=== PATIENT | male | born 1995 | race Caucasian/White ===

== ENCOUNTER 2021-09-14 10:49 | Inpatient (IN) | payer MEDICAID ==
[~2021-09-14] VITALS: Ht 172.7 cm; Wt 70.3 kg
[2021-09-14 10:50] VITALS: BP_SYST 152
--- NOTE | 2021-09-14 10:50 | NUR ---
Placed in room 4 . Placed on monitor worker, blood pressure machine and pulse oximeter. To gown for exam. Side rails up. Report given to GINGER FERMIN.
--- NOTE | 2021-09-14 11:00 | NUR ---
ED MD RIDDLE AT BEDSIDE
[2021-09-14 11:15] LABS: BASOPHILS % (AUTO) 0.3 % (0.0-2.0); EOSINOPHILS % (AUTO) 0.3 % (0.0-4.0); HEMATOCRIT 42.8 % (36-54); HEMOGLOBIN 14.5 g/dL (14.0-18.0); LYMPHOCYTES # (AUTO) 3.2 K/uL (1.0-5.5); LYMPHOCYTES % (AUTO) 34.5 % (20.5-51.5); MEAN CORPUSCULAR HEMOGLOBIN 29 pg (27-31); MEAN CORPUSCULAR HGB CONC 34 % (32-36); MEAN CORPUSCULAR VOLUME 85 fL (79.0-98.0); MONOCYTES # (AUTO) 0.7 K/uL (0.0-1.0); MONOCYTES % (AUTO) 7.1 % (1.7-9.3); NEUTROPHILS # (AUTO) 5.4 K/uL (1.8-7.7); NEUTROPHILS % (AUTO) 57.8 % (40.0-70.0); PLATELET COUNT (AUTO) 296 K/uL (130-430); RED CELL DISTRIBUTION WIDTH 14.2 % (9.0-15.0); WHITE BLOOD COUNT (AUTO) 9.3 K/uL (4.8-10.8)
[2021-09-14] MEDS ORDERED: NACL 0.9% 1,000 ML IV ONE ×3 (11:15→15:45)
[2021-09-14] MEDS ORDERED: ONDANSETRON HCL 4 MG/2 ML VIAL IVP ONE (11:15)
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
[2021-09-14 11:31] LABS: CALCIUM 8.4 mg/dL (8.4-11.0); CREATININE 0.75 mg/dL (0.55-1.30); POTASSIUM 3.5 mmol/L (3.5-5.1)
[2021-09-14 11:36] LABS: ALBUMIN 4.7 g/dL (3.4-4.8); TOTAL BILIRUBIN 0.6 mg/dL (0.0-1.0)
[2021-09-14] MEDS ORDERED: HALOPERIDOL LACTATE 5 MG/ML VIAL IM ONE (11:45)
--- NOTE | 2021-09-14 11:47 | NUR ---
DUE TO PTS MENTAL STATUS, UNABLE TO VERIFY ALLERGIES WITH PT. FATHER AT BEDSIDE AND STATES PT DOES NOT HAVE ANY ALLERGIES
[2021-09-14 12:12] LABS: ACETAMINOPHEN < 1 ug/mL (1-30)
[2021-09-14 12:31] LABS: CKMB RELATIVE INDEX 0.1 (0.0-2.9); CREATINE KINASE MB 1.2 ng/mL (0-3.6)
[2021-09-14] MEDS ORDERED: DIAZEPAM 10 MG/2 ML DISP.SYRIN IVP ONE (15:15)
--- NOTE | 2021-09-14 15:18 | NUR ---
Notified ED Admitting regarding Dr. lema's request for admission. Per Dr. Lema, pt is not stable for transfer. Will contact insurance analyst regarding this matter. PER FACESHEET: HUGO SIMON/RAKEL- MADYSON
[2021-09-14] MEDS ORDERED: LORazepam 2 MG/ML VIAL ONE (15:41)
[2021-09-14] MEDS ORDERED: LORazepam 2 MG/ML VIAL IVP ONE (15:45)
[2021-09-14] MEDS ORDERED: QUET200T PO (16:28)
[2021-09-14] MEDS ORDERED: GABA-533 PO (16:28)
[2021-09-14] MEDS ORDERED: FOLIC ACID 1 MG, THIAMINE HCL 100 MG, MAGNESIUM SULFATE 1 GM, MVI 10 ML in NACL 0.9% 1,... IV ONE (16:30)
--- NOTE | 2021-09-14 16:31 | NUR ---
Admit bed requested Patient will be admitted to care of . Admitted to TELEMTRY unit. Diagnosis ALCOHOL INTOXICATION Inpatient (Yes or No) Y Observation (Yes or No) N Orientation concerns or request close to nursing station (Yes or No) Y Covid Status N On vent or bipap N Isolation requirements N Needs a sitter Y From Home (Yes or if No enter name of facility) Y Requires Dialysis (Yes or No) N Med Rec Completed (Yes of No) Y Addendum: 09/14/21 at 1905 by [id number] NOW ICU UPGRADED BP IN SYSTOLIC IS IN THE 80S
[2021-09-14] MEDS ORDERED: FOLIC ACID 1 MG, MVI 10 ML in NACL 0.9% 1,000 ML IV ONE (17:00)
[2021-09-14] MEDS ORDERED: THIAMINE HCL 100 MG, MAGNESIUM SULFATE 1 GM in NS 100 ML IV ONE (17:00)
[2021-09-14 17:02] LABS: BILIRUBIN,URINE NEGATIVE (NEGATIVE); BLOOD, URINE NEGATIVE (NEGATIVE); CLARITY/URINE CLEAR (CLEAR); COLOR,URINE YELLOW (YELLOW); GLUCOSE,URINE NEGATIVE (NEGATIVE); KETONES,URINE NEGATIVE (NEGATIVE); LEUKOCYTE ESTERASE ,URINE NEGATIVE (NEGATIVE); NITRITE, URINE NEGATIVE (NEGATIVE); PROTEIN URINE NEGATIVE (NEGATIVE); UROBILINOGEN,URINE 0.2 (0.2-1.0)
[2021-09-14 17:47] LABS: BARBITURATE, URINE NEGATIVE (NEG <=200); BENZODIAZEPINE, URINE NEGATIVE (NEG <=150); CANNABINOID, URINE POSITIVE (NEG <=50); COCAINE, URINE NEGATIVE (NEG <=150); METHAMPHETAMINES SCREEN,URINE NEGATIVE (NEG <=500); OPIATE, URINE NEGATIVE (NEG <=100); PHENCYCLIDINE SCREEN,URINE NEGATIVE (NEG <=25); UR TRICYCLIC ANTIDEPRESSANTS NEGATIVE (NEG <=300); URINE AMPHETAMINE NEGATIVE (NEG <=500); URINE METHADONE NEGATIVE (NEG <=200); URINE OXYCODONE SCREEN NEGATIVE (NEG <=100); URINE PROPOXYPHENE SCREEN NEGATIVE (NEG <=300)
[2021-09-14] MEDS ORDERED: FAMOTIDINE PF 20 MG/2 ML VIAL IVP ONE (18:45)
[2021-09-14] MEDS: LR 1,000 ML IV SCH ×2 (18:45→22:27)
--- NOTE | 2021-09-14 20:00 | NUR ---
PT LAYING IN GURNEY CONNECTED TO MONITORS WITH EYES CLOSED. EASILY AROUSIBLE. FATHER AT BEDSIDE. RESP E/U. SKIN WDL. GCS15.
[2021-09-14] MEDS ORDERED: FAMOTIDINE PF 20 MG/2 ML VIAL ONE (21:06)
--- NOTE | 2021-09-14 21:30 | NUR ---
REPORT TO YENI MILES
[2021-09-14 22:00] VITALS: BP_SYST 98
--- NOTE | 2021-09-14 22:00 | NUR ---
@2150 PT arrived on the unit admitted to room 126 ICU #11 asleep but woke up ambulatory assisted to bed oriented x4 vitals signs stable, denies pain,no dizziness accompanied by ER nurse Romy matos at the bedside also pt's father present at this time, Orientation to the unit, education on care plan and he verbalized understanding, said he will like something to eat and pt's dad volunteered to get ellie for pt. Skin checked no breakdown noted, IV site dry intact patent ongoing Banana bag drip. Voids in the urinal, bed in low position call light at reach and enhanced close monitoring for safety.
[2021-09-14 23:00] VITALS: BP_SYST 116
--- NOTE | 2021-09-14 23:00 | NUR ---
All questions answered by patient and his father, so far pt cooperating with care no sign of alcohol withdrawal noted, denies suicidal ideation, mentioned that drinking alcohol is a way for him to cope with stress, social insurance adviser intervention ordered, and pt ate 100% of food provided by his father.
--- NOTE | 2021-09-14 23:33 | NUR ---
CONSULT: CONSULT CALLED FOR DR. SADLER I SPOKE WITH [employer] [facility] REASON FOR CONSULT: SChuyI REQUESTING CONSULT: DR. CURRY RELATIONS COORDINATOR PHONE NUMBER: [phone]
[2021-09-15] VITALS (24 sets, daily range): BP systolic 88–127
--- NOTE | 2021-09-15 00:25 | NUR ---
Pt's mother, Paulette, calls and she was updated on pt status. Her call back number: [phone].
[2021-09-15] MEDS: LORazepam 2 MG/ML VIAL IVP PRN ×4 (02:30→16:39)
--- NOTE | 2021-09-15 02:40 | NUR ---
Pt was restless, Ativan 1mg ivp given, complete bed bath given with CHG, linen changed, dangled at the bed side assisted back to bed ,reorientation to the unit and care plan ongoing monitoring for Alcohol withdrawal.
--- NOTE | 2021-09-15 05:50 | NUR ---
Pt's mother called for updates over the phone, education on care plan pt's condition, support also encouraged to ask questions for further clarification.
--- NOTE | 2021-09-15 06:50 | NUR ---
pt was very restless anxious to go home ongoing support to alleviates anxiety another dose of Ativan 1mg ivp given effective relaxed asleep now vitals signs stable
[2021-09-15 06:53] LABS: BASOPHILS % (AUTO) 0.2 % (0.0-2.0); EOSINOPHILS # (AUTO) 0.1 K/uL (0.0-0.4); EOSINOPHILS % (AUTO) 0.6 % (0.0-4.0); HEMATOCRIT 36.4 % (36-54); HEMOGLOBIN 12.3 g/dL (14.0-18.0); LYMPHOCYTES # (AUTO) 2.4 K/uL (1.0-5.5); LYMPHOCYTES % (AUTO) 26.5 % (20.5-51.5); MEAN CORPUSCULAR HEMOGLOBIN 29 pg (27-31); MEAN CORPUSCULAR HGB CONC 34 % (32-36); MEAN CORPUSCULAR VOLUME 86 fL (79.0-98.0); MONOCYTES # (AUTO) 0.5 K/uL (0.0-1.0); MONOCYTES % (AUTO) 6.1 % (1.7-9.3); NEUTROPHILS # (AUTO) 5.9 K/uL (1.8-7.7); NEUTROPHILS % (AUTO) 66.6 % (40.0-70.0); PLATELET COUNT (AUTO) 215 K/uL (130-430); RED BLOOD CELL COUNT(AUTO) 4.23 MIL/uL (4.2-6.2); RED CELL DISTRIBUTION WIDTH 14.7 % (9.0-15.0); WHITE BLOOD COUNT (AUTO) 8.9 K/uL (4.8-10.8)
--- NOTE | 2021-09-15 07:03 | NUR ---
Bedside report given to Amna MILES for continuity of pt care as at this time pt vitals stable no complain and no sign of distress
[2021-09-15 07:05] LABS: ALBUMIN 3.3 g/dL (3.4-4.8); CALCIUM 7.8 mg/dL (8.4-11.0); CREATININE 0.75 mg/dL (0.55-1.30); POTASSIUM 3.9 mmol/L (3.5-5.1); TOTAL BILIRUBIN 0.4 mg/dL (0.0-1.0)
[2021-09-15 07:10] LABS: PROTHROMBIN TIME 10.2 SECS (9.5-12.5)
[2021-09-15 08:34] LABS: CKMB RELATIVE INDEX 0.2 (0.0-2.9); CREATINE KINASE MB 1.8 ng/mL (0-3.6)
[2021-09-15] MEDS: FAMOTIDINE PF 20 MG/2 ML VIAL IVP SCH ×2 (09:08→22:12)
--- NOTE | 2021-09-15 10:46 | NUR ---
Followed up the Psych consult with DR SADLER. IS OUT OF TOWN. HE WILL ARRANGE WITH HIS OFFICE TO DO HIS CONSULTATION THRU THE TELE PSYCH. HE WILL INSTRUCT HIS OFFICE.
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
--- NOTE | 2021-09-15 13:25 | NUR ---
CHANNING Martinez faxed packet for review for inpatient psych treatment to the following - [facility] direct: fax: - [facility] direct: fax: - [facility] direct: fax: Addendum: 09/15/21 at 1700 by Michelle SNELL CHANNING recievd denials due to not having a bed available for [facility] patient's over 20 years of age. Addtional packets were sent to the following; - [facility] fax: - [facility] fax: - [facility] fax: - [facility] fax:
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
[2021-09-15] MEDS ORDERED: IBUPROFEN 400 MG TABLET PO PRN (14:45)
[2021-09-15] MEDS: LR 1,000 ML IV SCH (14:45)
--- NOTE | 2021-09-15 16:22 | NUR ---
patient aaox3 simple follow commands severe anxious non compliance with tele monitor vital sign iv access removed room air no sob non labored breathing pt denied chest pain any pain tele;sr sbp keep 100 mother at bedside ss services arrange to discharge hospital pending at this time close observation
--- NOTE | 2021-09-15 19:40 | NUR ---
Report received from Amna MILES met pt back in ICU bed 8, anxious about his care plan when, he will be discharged home or to facility to get more help for detoxification as he said, support more explanation that social sciences instructor still working on placement for him. Vitals signs stable afebrile complain of generalized weakness "whole body sore" as he said, mentally alert feeling sober denied suicidal ideation, no hallucination, no tremor, worried about his family more, verbalized needs for change of lifestyle focus on himself and spend more time with his family. Also asked for a letter for his work because as he said they understood that he have problem with Alcohol addiction.
--- NOTE | 2021-09-15 21:30 | NUR ---
@2054 Updates pt's mother over the phone as she called to get information about the pt's condition. Assisted with bed bath dangled at the bedside linen changed ongoing reorientation support, encouraging him to verbalize his concerns, enhanced close monitoring for safety and active listening to make hm comfortable.
[2021-09-16] VITALS (8 sets, daily range): BP systolic 96–133
[2021-09-16] MEDS: LR 1,000 ML IV SCH ×2 (00:45→08:17)
[2021-09-16] MEDS: LORazepam 2 MG/ML VIAL IVP PRN ×2 (02:25→08:17)
[2021-09-16 06:05] LABS: BASOPHILS % (AUTO) 0.3 % (0.0-2.0); EOSINOPHILS # (AUTO) 0.1 K/uL (0.0-0.4); EOSINOPHILS % (AUTO) 1.5 % (0.0-4.0); HEMATOCRIT 38.9 % (36-54); HEMOGLOBIN 13.1 g/dL (14.0-18.0); LYMPHOCYTES # (AUTO) 1.8 K/uL (1.0-5.5); LYMPHOCYTES % (AUTO) 23.6 % (20.5-51.5); MEAN CORPUSCULAR HEMOGLOBIN 29 pg (27-31); MEAN CORPUSCULAR HGB CONC 34 % (32-36); MEAN CORPUSCULAR VOLUME 86 fL (79.0-98.0); MONOCYTES # (AUTO) 0.7 K/uL (0.0-1.0); MONOCYTES % (AUTO) 8.6 % (1.7-9.3); NEUTROPHILS # (AUTO) 5.1 K/uL (1.8-7.7); PLATELET COUNT (AUTO) 209 K/uL (130-430); RED BLOOD CELL COUNT(AUTO) 4.51 MIL/uL (4.2-6.2); RED CELL DISTRIBUTION WIDTH 13.7 % (9.0-15.0); WHITE BLOOD COUNT (AUTO) 7.7 K/uL (4.8-10.8)
[2021-09-16 06:25] LABS: ALBUMIN 3.7 g/dL (3.4-4.8); CALCIUM 8.1 mg/dL (8.4-11.0); CREATININE 0.76 mg/dL (0.55-1.30); POTASSIUM 3.5 mmol/L (3.5-5.1); TOTAL BILIRUBIN 1.1 mg/dL (0.0-1.0)
--- NOTE | 2021-09-16 06:30 | NUR ---
Ambulates pt in the hallway just for change of scene still pleasant cooperate with care no sign of alcohol withdrawal noted steady gait no tremor still mentally alert calm and vitals signs stable.
--- NOTE | 2021-09-16 07:15 | NUR ---
Change of shift report at the bedside to Nemo MILES as at this time pt awake alert no crisis noted vitals signs stable no changes in care plan, condition and pt is safe on the unit.
--- NOTE | 2021-09-16 07:30 | NUR ---
RECEIVED PT FROM GINGER JAIME. PT IS AAOX4. PERRL. RESP E/U. ON R/A. NO COUGH OR SOB. TELE IN PLACE SHOWING NSR. ABDOMEN SOFT, NONTENDER, NONDISTENDED. BOWEL SOUNDS ACTIVE. DENIES N/V/D/C. DISTAL PULSE NORMAL, NO EDEMA. SKIN WARM, INTACT. PT HAS IV CATH 20G TO RFA, WITH LR RUNNING AT 100ML/HOUR. SITE WNL. DRESSING CDI. PT DENIES PAIN. CALL LIGHT WITHIN REACH.
[2021-09-16] MEDS: FAMOTIDINE PF 20 MG/2 ML VIAL IVP SCH (08:17)
--- NOTE | 2021-09-16 08:22 | NUR ---
PT AGITATED, PULLING AT LINE, TAPING FEET, ASKING SAME QUESTIONS REPEATEDLY. PT VOICED FEELING ANXIOUS. ATIVAN 1MG IVP GIVEN ORDERED FOR AGITATION. PT PULLED IV CATH TO RFA, CATH INTACT, SITE WNL, COVERED WITH GAUZE AND TAPE. NEW IV CATH 20G STARTED TO RFA ON FIRST ATTEMPT. COVERED WITH CDI DRESSING. SCHEDULED MEDS GIVEN AND TOLERATED WELL. PT ON ONE TO ONE SUPERVISION WITH THIS RN.
--- NOTE | 2021-09-16 08:30 | NUR ---
PT NOTED TAKING OFF GOWN AND B/P CUP. PT REDIRECTED, EDUCATED ON PLAN OF CARE AND ENCOURAGED TO NO LEAVE AMA. PT STATED HE IS NOT LEAVING.
--- NOTE | 2021-09-16 08:35 | NUR ---
DRYING SUPERVISOR INSPECTOR AND CLIPPER Michelle contacted the following psych facilities for inpatient treatment for patient; [facility]- No bed [facility]- No bed [facility]- is not contracted with [facility]- still looking for bed [facility]- No beds [facility]- does not [facility]- No beds [facility] [place]- Not contracted with [facility] for patients over 20 [facility]- No beds INSPECTOR AND CLIPPER Will continue efforts to locate appropriate psych treatment/
--- NOTE | 2021-09-16 08:50 | NUR ---
PT TAKING OFF GOWN AND MONITOR, PUTTING CLOTHES ON APPEARING TO BE ATTEMPTING TO LEAVE. HE STATED, " I CAN NOT BE KEPT HERE." PT'S IV CATH TO RFA REMOVED PT APPEARS TO LEAVTING AMA AND HAD A DEPENDENCY PROBLEM. PT'S MOM CALLED BUT NUMBER IS WRONG, SHASTA ATTEMPTING TO FIND CORRECT NUMBER. PT MADE AWARE TO WAIT TO LEAVE UNTIL HIS PARENT CAN COME. NO RESPONSE FROM PT.
--- NOTE | 2021-09-16 08:56 | NUR ---
PT HAS TAKING OFF TELEMONITOR AND DRESSED COMPLETELY WITH SHOES ON. PT EDUCATED TO STAY AND IF HE LEAVES IT IS AGAINST MEDICAL ADVICE. PT STATED HE WANTS TO GET HIS MEDICATION AT HOME.
--- NOTE | 2021-09-16 09:01 | NUR ---
REINFORCED WITH PT A SECOND TIME THAT HIS PARENTS ARE ON THEIR WAY AND IF HE COULD JUST WAIT FOR HIM BEFORE HE LEAVES.. PT REMAINED SITTING ON THE BED, FULLY DRESSED WITH BAG OF BELONGINGS, APPEARING TO BE READY TO LEAVE. .
--- NOTE | 2021-09-16 09:02 | NUR ---
PAGED DR. CURRY TO INFORM HIM PT IS NOT ON A 5150 HOLD, I CAN ENCOURGE HIM NOT TO LEAVE BUT CAN NOT HOLD HIM OR FORCE HIM TO STAY. THE PT STATED ALL WE ARE DOING IS GIVING HIM ATIVAN AND THAT IS NOT HELPING HIM.
--- NOTE | 2021-09-16 09:09 | NUR ---
PT WALKING OUT OF ICU. THIS NURSE EXPLAINED TO THE PT SEVERAL TIMES THE RISK AND BENEFITS OF LEAVING AMA. SECURITY PAGED TO COME TO UNIT. PT VERBALIZED UNDERSTANDING. ATTEMPTED TO REINFORCE THAT LEAVING UNIT WOULD CAUSE POSSIBLE RELAPSE AND THAT WE ARE TRYING TO GET HIM PLACEMENT IN A REHAB REQUESTED. PT STATED, "CAN I LEAVE NOW?" PT SIGNED AMA AND SECURITY FOLLOWED PT OUT THE UNIT DOOR.
[2021-09-16] MEDS ORDERED: LORazepam 2 MG/ML VIAL IVP PRN (09:15)
--- NOTE | 2021-09-16 09:16 | NUR ---
SHASTA QUIROZ PT LEFT AMA. PT'S MOTHER AND FATHER CALLED TO INFORM THEM. AWAITING CALL BACK FROM DR. CURRY.
--- NOTE | 2021-09-16 09:25 | NUR ---
DR. CURRY MADE AWARE PT HAS LEFT AMA. PER PSYCH NOTE PT IS NO LONGER ON 5150. PT MOTHER INFORMED BY GINGER VEGAS.
--- NOTE | 2021-09-16 11:00 | NUR ---
CYLINDER GRINDER CHANNING Martinez received a call from patient's mother Paulette Solorio inquiring into patient's location. As ICU has previously done, KNIFE FINISHER reminded her patient had LAMA and informed her efforts had continued through out the morning to locate psych placement but was unsuccessful. Paulette shared she has obtained a bed for patient at [facility] in [place] but it would not be available till Wednesday 09/20. KNIFE FINISHER informed her that the patient came into the lobby several times stating he was awaiting his ride and requesting Driver Merchandiser. KNIFE FINISHER made 3 attempts to locate patient outside of the facility but was unsuccessful. KNIFE FINISHER updated patient's mother Paulette KNIFE FINISHER was unable to locate patient. She expressed concern that if he was gone, patient will seek alcohol and she will not be able to take him home due to aggressive behaviors when he's under the influence. Addendum: 09/16/21 at 1157 by Michelle SNELL KNIFE FINISHER contacted Socorro Mcconnell with [facility] to inquire into needed documentation for patient. She will be contacting patient's mother to discuss needs further.
== END 2021-09-16 09:09 | disposition left against medical advice (07) | DRG 770 ==
LOC: SED 10:49 → STU 16:26 → SIC 21:30
PROVIDERS: ADMIT Internal Medicine; ATTEND Internal Medicine
DX: F10.129 Alcohol abuse with intoxication, unspecified (principal); R45.851 Suicidal ideations; M62.82 Rhabdomyolysis; R65.10 Systemic inflammatory response syndrome (SIRS) of non-infectious origin without acute organ dysfunction; F12.10 Cannabis abuse, uncomplicated; F10.139 Alcohol abuse with withdrawal, unspecified; F32.A Depression, unspecified; Z79.899 Other long term (current) drug therapy
CPT/HCPCS: 36415; 71045; 80053; 80307; 81003; 82550; 82553; 85025; 85610-TC; 85730-TC; 87081; 93005; 96372; 96374; 96375; 99285; G0480; G0481; G0482; J1630; J2060; J2405; J3411; J3475; J3490; J7030; U0003

== ENCOUNTER 2022-04-04 11:02 | Emergency (ER) | payer MEDICAID ==
[~2022-04-04] VITALS: Ht 177.8 cm; Wt 63.5 kg
[~2022-04-04 11:02] MED LIST: GABA-533 PO; QUET200T PO
[2022-04-04 11:05] VITALS: BP_SYST 100
[2022-04-04 11:49] LABS: BASOPHILS # (AUTO) 0.1 K/uL (0.0-0.2); BASOPHILS % (AUTO) 0.4 % (0.0-2.0); HEMATOCRIT 40.7 % (36-54); HEMOGLOBIN 13.6 g/dL (14.0-18.0); LYMPHOCYTES # (AUTO) 2.6 K/uL (1.0-5.5); MEAN CORPUSCULAR HEMOGLOBIN 29 pg (27-31); MEAN CORPUSCULAR HGB CONC 33 % (32-36); MEAN CORPUSCULAR VOLUME 85 fL (79.0-98.0); MONOCYTES # (AUTO) 0.9 K/uL (0.0-1.0); MONOCYTES % (AUTO) 6.7 % (1.7-9.3); NEUTROPHILS # (AUTO) 10.2 K/uL (1.8-7.7); NEUTROPHILS % (AUTO) 73.9 % (40.0-70.0); PLATELET COUNT (AUTO) 394 K/uL (130-430); RED BLOOD CELL COUNT(AUTO) 4.76 MIL/uL (4.2-6.2); RED CELL DISTRIBUTION WIDTH 14.4 % (9.0-15.0); WHITE BLOOD COUNT (AUTO) 13.8 K/uL (4.8-10.8)
[2022-04-04 12:08] LABS: CALCIUM 8.8 mg/dL (8.4-11.0); CREATININE 0.84 mg/dL (0.55-1.30)
[2022-04-04 12:14] LABS: TOTAL BILIRUBIN 0.4 mg/dL (0.0-1.0)
[2022-04-04 12:37] LABS: CKMB RELATIVE INDEX 0.6 (0.0-2.9); CREATINE KINASE MB 2.5 ng/mL (0-3.6)
[2022-04-04 14:00] VITALS: BP_SYST 134
[2022-04-04 14:48] LABS: BARBITURATE, URINE NEGATIVE (NEG <=200); BENZODIAZEPINE, URINE NEGATIVE (NEG <=150); CANNABINOID, URINE NEGATIVE (NEG <=50); COCAINE, URINE NEGATIVE (NEG <=150); METHAMPHETAMINES SCREEN,URINE NEGATIVE (NEG <=500); OPIATE, URINE NEGATIVE (NEG <=100); PHENCYCLIDINE SCREEN,URINE NEGATIVE (NEG <=25); UR TRICYCLIC ANTIDEPRESSANTS NEGATIVE (NEG <=300); URINE AMPHETAMINE NEGATIVE (NEG <=500); URINE METHADONE NEGATIVE (NEG <=200); URINE OXYCODONE SCREEN NEGATIVE (NEG <=100); URINE PROPOXYPHENE SCREEN NEGATIVE (NEG <=300)
== END 2022-04-04 17:03 | disposition home or self-care (01) ==
LOC: SED 11:02
DX: F10.10 Alcohol abuse, uncomplicated (principal); R41.82 Altered mental status, unspecified; Z88.0 Allergy status to penicillin; Z79.899 Other long term (current) drug therapy; Z20.822 Contact with and (suspected) exposure to COVID-19; Y90.6 Blood alcohol level of 120-199 mg/100 ml
CPT/HCPCS: 99285; 71045; 87426; 80307; 80053; 82550; 82553; 85025; 36415; 93005; G0482; G0480; G0481

== ENCOUNTER 2022-09-23 11:31 | Emergency (ER) | payer MEDICAID ==
[~2022-09-23] VITALS: Ht 172.7 cm; Wt 77.1 kg
[2022-09-23 11:35] VITALS: BP_SYST 104; PULSE 80; RESP 19; TEMP 98; O2SAT 100
--- NOTE | 2022-09-23 11:35 | NUR ---
Placed in room 05 . Placed on air sampling and monitoring, blood pressure machine and pulse oximeter. To gown for exam. Side rails up. Report given to GINGER QUINTERO.
--- NOTE | 2022-09-23 11:36 | NUR ---
ER DR. SANFORD AT THE BEDSIDE EXAMINING PT
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
[2022-09-23] MEDS ORDERED: NACL 0.9% 1,000 ML IV ONE (11:45)
--- NOTE | 2022-09-23 11:51 | NUR ---
# 20 gauge angiocath placed to RAC. Use of asceptic technique. Opsite placed over site. Blood return noted. Blood for lab drawn from site. Flushed with 10 cc of normal saline. No evidence of infiltration noted. Patient tolerated well.
--- NOTE | 2022-09-23 11:56 | NUR ---
Patient transported to radiology via GURNEY, accompanied by STAFF.
[2022-09-23 12:00] LABS: BASOPHILS % (AUTO) 0.4 % (0.0-2.0); EOSINOPHILS % (AUTO) 0.4 % (0.0-4.0); HEMATOCRIT 43.3 % (36-54); HEMOGLOBIN 14.6 g/dL (14.0-18.0); LYMPHOCYTES # (AUTO) 2.4 K/uL (1.0-5.5); LYMPHOCYTES % (AUTO) 33.7 % (20.5-51.5); MEAN CORPUSCULAR HEMOGLOBIN 29 pg (27-31); MEAN CORPUSCULAR HGB CONC 34 % (32-36); MEAN CORPUSCULAR VOLUME 86 fL (79.0-98.0); MONOCYTES # (AUTO) 0.3 K/uL (0.0-1.0); MONOCYTES % (AUTO) 4.9 % (1.7-9.3); NEUTROPHILS # (AUTO) 4.2 K/uL (1.8-7.7); NEUTROPHILS % (AUTO) 60.6 % (40.0-70.0); PLATELET COUNT (AUTO) 246 K/uL (130-430); RED BLOOD CELL COUNT(AUTO) 5.02 MIL/uL (4.2-6.2); RED CELL DISTRIBUTION WIDTH 13.4 % (9.0-15.0)
--- NOTE | 2022-09-23 12:00 | NUR ---
ROSELIA AT THE BEDSIDE SENT FROM [facility]
[2022-09-23 12:17] LABS: ANION GAP 11 (5-15); CALCIUM 8.8 mg/dL (8.4-11.0); CHLORIDE 101 mmol/L (98-107); CREATININE 0.95 mg/dL (0.55-1.30); GFR AFRICAN AMERICAN 124 mL/min (>90); GLUCOSE 104 mg/dL (70-99); UREA NITROGEN, BLOOD 19 mg/dL (8-21)
[2022-09-23 12:21] LABS: ALANINE AMINOTRANSFERASE 27 U/L (12-78); ALCOHOL, BLOOD 69 mg/dL (<10); ASPARTATE AMINOTRANSFERASE 25 U/L (10-37); TOTAL BILIRUBIN 1.3 mg/dL (0.0-1.0)
[2022-09-23 12:24] LABS: ACETAMINOPHEN < 1 ug/mL (1-30)
--- NOTE | 2022-09-23 13:06 | NUR ---
REPORT GIVEN TO ANNABELLA AT [facility]
--- NOTE | 2022-09-23 15:03 | NUR ---
Pt resting in bed, no s/s of distress, VSS, respirations even and unlabored
[2022-09-23 15:42] LABS: BARBITURATE, URINE NEGATIVE (NEG <=200); BENZODIAZEPINE, URINE NEGATIVE (NEG <=150); CANNABINOID, URINE POSITIVE (NEG <=50); COCAINE, URINE NEGATIVE (NEG <=150); METHAMPHETAMINES SCREEN,URINE NEGATIVE (NEG <=500); OPIATE, URINE NEGATIVE (NEG <=100); PHENCYCLIDINE SCREEN,URINE NEGATIVE (NEG <=25); URINE AMPHETAMINE NEGATIVE (NEG <=500); URINE METHADONE NEGATIVE (NEG <=200); URINE OXYCODONE SCREEN NEGATIVE (NEG <=100); URINE PROPOXYPHENE SCREEN NEGATIVE (NEG <=300)
[2022-09-23 15:43] LABS: UR TRICYCLIC ANTIDEPRESSANTS NEGATIVE (NEG <=300)
--- NOTE | 2022-09-23 15:51 | NUR ---
Patient given written and verbal discharge instructions and verbalizes understanding. ER MD discussed with patient the results and treatment provided. Patient in stable condition. ID arm band removed. No Rx given. Patient educated on pain management and to follow up with PMD. Pain Scale 0/10 . Opportunity for questions provided and answered. Medication side effect fact sheet provided.
[2022-09-23 15:52] VITALS: BP_SYST 115; PULSE 80; RESP 19; TEMP 98; O2SAT 100
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
== END 2022-09-23 15:51 ==
LOC: SED 11:31
DX: R55 Syncope and collapse (principal); F10.239 Alcohol dependence with withdrawal, unspecified; Z88.0 Allergy status to penicillin; Z79.899 Other long term (current) drug therapy; Y90.6 Blood alcohol level of 120-199 mg/100 ml
CPT/HCPCS: 99285; 96360; 70450; 80307; 80053; 85025; 36415; 93005; 76376; G0482; J7030; G0480; G0481; 99284